=== PATIENT | female | born 1985 | race Caucasian/White ===

== ENCOUNTER 2017-01-23 04:22 | Emergency (ER) | payer BC, OTHER ==
[~2017-01-23] VITALS: Ht 157.5 cm; Wt 139.0 kg
[2017-01-23 04:33] VITALS: Ht 157.5 cm; Wt 139.0 kg
[2017-01-23] MEDS ORDERED: IBUP800T25 PO (04:58)
[2017-01-23] MEDS ORDERED: AMOX1TAB10 PO (04:59)
[2017-01-23] MEDS ORDERED: NPH10OT RIGHT EAR (04:59)
[2017-01-23] MEDS ORDERED: HYDROCODONE/APAP (5/325) TAB PO ONE (05:00)
[2017-01-23] MEDS ORDERED: ACET500C5 PO (05:01)
--- NOTE | 2017-01-23 05:26 | ERD ---
ER Documentation Chief Complaint Date/Time DATE: 01/23/17 TIME: 05:23 Chief Complaint right ear pain started yesterday HPI This 31-year-old female presents emergency department today complaining of right ear pain since yesterday. States that she tried to put a Q-tip in her ear and made it worse. She is taking Motrin for pain. Denies any fevers or chills, sore throat. ROS All systems reviewed and are negative except as per history of present illness. Medications Home Meds Active Scripts Acetaminophen* (Tylophen*) 500 Mg Capsule, 1 CAP PO Q6H Y for PAIN AND OR ELEVATED TEMP, #30 CAP Prov:TALITA WEBB PA-C 01/23/17 Amoxicillin/Potassium Clav (Amox-Clav 875-125 mg Tablet) 875-125 mg Tab, 1 TAB PO BID for 7 Days, #14 TAB Prov:TALITA WEBB PA-C 01/23/17 Neomycin/Polymyxin/Hydrocort* (Cortisporin* Otic) 10 Ml Susp, 4 DROP RIGHT EAR QID for 7 Days, EA Prov:TALITA WEBB PA-C 01/23/17 Ibuprofen* (Motrin*) 800 Mg Tab, 800 MG PO Q6, #30 TAB Prov:TALITA WEBB PA-C 01/23/17 Allergies Allergies: Coded Allergies: No Known Allergy (Unverified , 01/23/17) PMhx/Soc Medical and Surgical Hx: pt denies Medical Hx, pt denies Surgical Hx Hx Alcohol Use: No Hx Substance Use: No Hx Tobacco Use: No Smoking Status: Never smoker Physical Exam Vitals Vital Signs Date Time Temp Pulse Resp B/P Pulse Ox O2 Delivery O2 Flow Rate FiO2 01/23/17 04:33 98.4 72 18 123/86 98 Physical Exam Const: obese, Head: Atraumatic Eyes: Normal Conjunctiva ENT: Right ear with tenderness with auricle movement. Evidence of mild drainage. Nontender mastoid. Left ear TM normal. Nose no drainage. Throat erythema no exudate Neck: Full range of motion..~ No meningismus. Resp: Clear to auscultation bilaterally Cardio: Regular rate and rhythm, no murmurs Abd: Soft, non tender, non distended. Normal bowel sounds Skin: No petechiae or rashes Neur: Awake and alert Psych: Normal Mood and Affect Results 24 hrs Current Medications Medications (Trade) Dose Ordered Sig/Raji Route PRN Reason Start Time Stop Time Status Last Admin Dose Admin Acetaminophen/ Hydrocodone Bitart (Sanders (5/325)) 1 tab ONCE ONCE PO 01/23/17 05:00 01/23/17 05:01 DC 01/23/17 05:08 Procedures/MDM This is a 31-year-old female presents emergency department today complaining of right ear pain. Signs and symptoms are consistent with otitis externa. Patient has no mastoid tenderness and of low suspicion for otitis. Patient is afebrile and otherwise well-appearing. I will also treat her for otitis media as I am having a difficult time seeing her TM. Patient was given Sanders here in the emergency department. She was given a prescription for Cortisporin and Augmentin and Tylenol Motrin for home. At this time the patient is stable for discharge and outpatient management. Patient should follow up with their PCP in the next 1-2 days. They may return to the emergency department sooner for any persistent or worsening of symptoms. Patient understood and agreed with the plan. Departure Diagnosis: Primary Impression: Right ear pain Condition: Fair Patient Instructions: Otitis Externa (Child) Referrals: COMMUNITY CLINICS YOU HAVE RECEIVED A MEDICAL SCREENING EXAM AND THE RESULTS INDICATE THAT YOU DO NOT HAVE A CONDITION THAT REQUIRES URGENT TREATMENT IN THE EMERGENCY DEPARTMENT. FURTHER EVALUATION AND TREATMENT OF YOUR CONDITION CAN WAIT UNTIL YOU ARE SEEN IN YOUR DOCTORS OFFICE WITHIN THE NEXT 1-2 DAYS. IT IS YOUR RESPONSIBILITY TO MAKE AN APPOINTMENT FOR FOLOW-UP CARE. IF YOU HAVE A PRIMARY DOCTOR --you should call your primary doctor and schedule an appointment IF YOU DO NOT HAVE A PRIMARY DOCTOR YOU CAN CALL OUR PHYSICIAN REFERRAL HOTLINE AT IF YOU CAN NOT AFFORD TO SEE A PHYSICIAN YOU CAN CHOSE FROM THE FOLLOWING [facility]LY [facility] [address] [facility] [address] [facility]. [facility] [address] [facility] [address] [facility] [address] [facility] [facility] [address] Additional Instructions: Call your primary care doctor TOMORROW for an appointment during the next 1-2 days.See the doctor sooner or return here if your condition worsens before your appointment time. Take antibiotics as prescribed. Take tylenol or motrin for pain TALITA WEBB PA-C Jan 23, 2017 05:26
[2017-01-23 05:37] VITALS: BP 120/78; PULSE 70; RESP 18; TEMP 98
== END 2017-01-23 05:45 | disposition home or self-care (01) ==
LOC: FTE 04:22
DX: H92.01 Otalgia, right ear (principal)
CPT/HCPCS: 99283